=== PATIENT | female | born 1985 | race Two or more races ===

== ENCOUNTER 2016-09-09 17:59 | Emergency (ER) | payer SELFPAY ==
[~2016-09-09] VITALS: Ht 152.4 cm; Wt 65.8 kg
[2016-09-09] MEDS ORDERED: NKM (18:08)
[2016-09-09 18:11] VITALS: BP 120/68
[2016-09-09 18:54] LABS: APPEARANCE,URINE SLIGHTLY CLOUDY; KETONES,URINE 2+ (NEGATIVE); LEUKOCYTE ESTERASE ,URINE 3+ (NEGATIVE); NITRITE,URINE NEGATIVE (NEGATIVE); PH,URINE 6 (4.5-8.0); PROTEIN,URINE NEGATIVE (NEGATIVE); UROBILINOGEN,URINE NORMAL MG/DL (0.0-1.0)
[2016-09-09 19:10] VITALS: BP 120/68
[2016-09-09] MEDS ORDERED: CEPHALEXIN500 MG ORAL (19:10)
[2016-09-09 19:23] LABS: BACTERIA,URINE MODERATE /HPF; SQUAMOUS EPITHELIAL CELL,UR MANY /LPF (NONE/OCC)
--- NOTE | 2016-09-09 21:10 | Emergency Room Report ---
History of Present Illness General Chief Complaint: Skin Rash/Abscess Source: Patient Present Illness HPI The patient is a 31-year-old female presenting for vaginal pain and dysuria for the past week. The patient has noticed vaginal swelling. Pain is worse with touch. It is described as an 8/10 dull ache to the touch it does not radiate. Patient also states that she experiences a burning with urination described as a 5-10. Only occurs during urination. Patient denies other symptoms including hematuria, vaginal discharge, flank pain, increased urinary frequency, abdominal pain, abdominal cramping, nausea, vomiting Allergies: Coded Allergies: No Known Allergies (Unverified , 09/09/16) Patient History Past Medical History: see triage record Pertinent Family History: none Last Menstrual Period: 08/05/2016 Now: Yes : 3 Para: 2 Reviewed Nursing Documentation: PMH: Agreed, PSxH: Agreed Nursing Documentation-PMH Past Medical History: No Stated History Review of Systems All Other Systems: negative except mentioned in HPI Physical Exam Vital Signs Date Time Temp Pulse Resp B/P Pulse Ox O2 Delivery O2 Flow Rate FiO2 09/09/16 18:04 98.1 97 16 120/68 99 Room Air Sp02 EP Interpretation: reviewed, normal General Appearance: no apparent distress, alert, GCS 15, non-toxic Head: normocephalic, atraumatic Eyes: bilateral eye PERRL, bilateral eye normal inspection ENT: hearing grossly normal, normal pharynx, no angioedema, normal voice Respiratory: chest non-tender, lungs clear, normal breath sounds, speaking full sentences Cardiovascular #1: regular rate, rhythm, no edema Gastrointestinal: normal bowel sounds, soft, non-distended, no guarding, no rebound, tenderness - suprapubic Genitourinary: normal inspection, no CVA tenderness, ext genitalia/vag normal Musculoskeletal: back normal, gait/station normal, normal range of motion, non- tender Neurologic: alert, oriented x3, responsive, motor strength/tone normal, sensory intact, speech normal Psychiatric: judgement/insight normal, memory normal, mood/affect normal, no suicidal/homicidal ideation Skin: normal color, no rash, warm/dry, well hydrated Lymphatic: no adenopathy Medical Decision Making PA Attestation Dr. Burnham is my supervising physician. Patient management was discussed with my supervising physician Diagnostic Impression: Primary Impression: Urinary tract infection Additional Impression: ER Course The patient is a 31-year-old female presenting for vaginal pain and dysuria for the past week. Differential diagnosis considered but not limited to: UTI, vaginitis, pyelonephritis, pyelonephrosis, PID, ectopic PE: vitals WNL. NAD Abdomen is soft. Normal bowel sounds. There is suprapubic tenderness to palpation only. No guarding. No CVA tenderness External vagina: No erythema or edema. No discharge UA: 10-15 WBCs and many bacteria. + The patient is informed of these results and appears disheartened regarding the . The patient will be treated for urinary tract infection and will followup with PMD and COMPLIANCE CLERK. ER precautions are given Laboratory Tests Test 09/09/16 18:26 Urine Color Pale yellow Urine Appearance Slightly cloudy Urine pH 6 (4.5-8.0) Urine Specific [place] 1.010 (1.005-1.035) Urine Protein Negative (NEGATIVE) Urine Glucose (UA) Negative (NEGATIVE) Urine Ketones 2+ (NEGATIVE) H Urine Occult Blood 1+ (NEGATIVE) H Urine Nitrite Negative (NEGATIVE) Urine Bilirubin Negative (NEGATIVE) Urine Urobilinogen Normal MG/DL (0.0-1.0) Urine Leukocyte Esterase 3+ (NEGATIVE) H Urine RBC 5-10 /HPF (0 - 2) H Urine WBC 10-15 /HPF (0 - 2) H Urine Squamous Epithelial Cells Many /LPF (NONE/OCC) H Urine Bacteria Moderate /HPF (NONE) H Urine HCG, Qualitative Positive Lab Results Impression UA: 10-15 WBCs and many bacteria. + Last Vital Signs Date Time Temp Pulse Resp B/P Pulse Ox O2 Delivery O2 Flow Rate FiO2 09/09/16 19:10 98.1 76 16 120/68 99 Room Air Status: improved Disposition: HOME, SELF-CARE Condition: Improved Scripts Cephalexin* (KEFLEX*) 500 Mg Capsule 500 MG ORAL EVERY 12 HOURS, #14 CAP 0 Refills Prov: KYMBERLY MONACO P.A. 09/09/16 Patient Instructions: Urinary Tract Infection, and Urinary Tract Infection Additional Instructions: I discussed my findings with the patient. All questions and concerns have been answered. Treatment and medication compliance have been addressed. I advised the patient that they need to follow up with PMD in 3-5 days. Return to ED if symptoms worsen, new symptoms arise, or if needed for any reason. Patient verbalized understanding of discharge instructions. KYMBERLY MONACO Sep 09, 2016 21:10
== END 2016-09-09 19:10 | disposition home or self-care (01) ==
LOC: EMR 18:33
DX: N39.0 Urinary tract infection, site not specified (principal); O26.90 Pregnancy related conditions, unspecified, unspecified trimester; Z3A.00 Weeks of gestation of pregnancy not specified
CPT/HCPCS: 81003; 81025; 87086; 99283